=== PATIENT | female | born 1990 | race Caucasian/White ===

== ENCOUNTER 2017-07-04 17:54 | Outpatient (CLI) | payer BC ==
[~2017-07-04] VITALS: Ht 170.2 cm; Wt 65.9 kg
[2017-07-04 18:25] VITALS: BP 111/72
[2017-07-04] MEDS ORDERED: PREN1TAB10 PO (18:39)
== END 2017-07-04 19:04 | disposition home or self-care (01) ==
LOC: LDOP 17:54
PROVIDERS: ATTEND Obstetrics & Gynecology Gynecology
DX: O26.893 Other specified pregnancy related conditions, third trimester (principal); R10.9 Unspecified abdominal pain; Z3A.32 32 weeks gestation of pregnancy
CPT/HCPCS: 59025; 99201; G0463

== ENCOUNTER 2017-08-15 08:35 | Inpatient (IN) | payer BC ==
[~2017-08-15] VITALS: Ht 170.2 cm; Wt 71.0 kg
[~2017-08-15 08:35] MED LIST: PREN1TAB10 PO
[2017-08-15] MEDS ORDERED: BUTORPHANOL 1 MG/ML, 1ML IVPush PRN (22:00)
[2017-08-15] MEDS ORDERED: D5%-LACTATED RINGERS 1,000 ML IV SCH (22:00)
[2017-08-15] MEDS ORDERED: FENTANYL PF 100 MCG/2ML IV PRN (22:00)
[2017-08-15] MEDS ORDERED: TERBUTALINE 1 MG/ML, 1ML SQ PRN (22:00)
[2017-08-15] MEDS ORDERED: OXYTOCIN 30U/ 0.9% NaCL 500ML 500 ML IV PRN (22:00)
[2017-08-15] MEDS ORDERED: ONDANSETRON 2MG/ML, 2ML IVPush PRN (22:00)
[2017-08-15] MEDS ORDERED: OXYTOCIN 30U/ 0.9% NaCL 500ML 500 ML IV ONE (22:00)
[2017-08-15] MEDS ORDERED: TERBUTALINE 1 MG/ML, 1ML IVPush PRN (22:00)
[2017-08-15] MEDS ORDERED: LIDOCAINE 1%, 20ML ONE ×2 (22:10→22:16)
[2017-08-15] MEDS ORDERED: NEWBORN KIT ONE (22:10)
[2017-08-15] MEDS ORDERED: MISOPROSTOL 25 MCG TABLET ONE (22:10)
[2017-08-15] MEDS ORDERED: MISOPROSTOL 200 MCG TABLET ONE ×2 (22:11→22:16)
[2017-08-15] MEDS: LACTATED RINGERS 1,000 ML IV SCH (22:13)
[2017-08-15] MEDS ORDERED: OXYTOCIN 30U/ 0.9% NaCL 500ML 500 ML ONE (22:17)
[2017-08-15 22:33] LABS: BASOPHILS # (AUTO) 0.06 x10^3/uL (0-0.1); BASOPHILS % (AUTO) 0 % (0-1); EOSINOPHILS # (AUTO) 0.11 x10^3/uL (0-0.4); EOSINOPHILS % (AUTO) 1 % (1-7); LYMPHOCYTES % (AUTO) 15 % (22-44); MD NO; MEAN CORPUSCULAR HEMOGLOBIN 28.2 pg (27.0-34.8); MEAN CORPUSCULAR HGB CONC 33.9 g/dL (32.4-35.8); MEAN CORPUSCULAR VOLUME 83.3 fL (80-100); MEAN PLATELET VOLUME 7.8 fL (7.4-10.4); MONOCYTES # (AUTO) 0.73 x10^3/uL (0.2-0.8); MONOCYTES % (AUTO) 5 % (2-9); NEUTROPHILS # (AUTO) 12.32 x10^3/uL (1.8-6.8); NEUTROPHILS % (AUTO) 79 % (42-75); PLATELET COUNT 263 x10^3/uL (130-400); RED BLOOD COUNT 4.12 x10^6/uL (3.82-5.3); RED CELL DISTRIBUTION WIDTH 12.5 % (9.6-15.2)
[2017-08-16] MEDS: LACTATED RINGERS 1,000 ML IV SCH ×4 (04:30→20:14)
[2017-08-16] MEDS ORDERED: FENTANYL PF 100 MCG/2ML ONE ×2 (08:06→10:39)
[2017-08-16] MEDS: FENTANYL PF 100 MCG/2ML IVPush PRN ×2 (08:08→10:41)
[2017-08-16] MEDS ORDERED: FENTANYL/BUPIV./NS/PF 250 ML EPIDCONT ONE (12:55)
[2017-08-16] MEDS: OXYTOCIN 30U/ 0.9% NaCL 500ML 500 ML IV SCH (14:23)
[2017-08-16] MEDS ORDERED: OXYcodone/APAP 5/325MG TABLET PO PRN (14:30)
[2017-08-16] MEDS ORDERED: CALCIUM CARBONATE 500 MG TAB.CHEW PO PRN (14:30)
[2017-08-16] MEDS ORDERED: DOCUSATE 100 MG CAPSULE PO PRN (14:30)
[2017-08-16] MEDS ORDERED: MEASLES,MUMPS&RUBELLA VACC/PF 0.5 ML SQ PRN (14:30)
[2017-08-16] MEDS ORDERED: ONDANSETRON 2MG/ML, 2ML IV PRN (14:30)
[2017-08-16] MEDS ORDERED: OXYcodone IR 5MG TABLET PO PRN (14:30)
[2017-08-16] MEDS ORDERED: RHOGAM FROM BLOOD BANK 1 NOTE EA IM/IV ONE (14:30)
[2017-08-16] MEDS ORDERED: MISOPROSTOL 200 MCG TABLET PR PRN (14:30)
[2017-08-16] MEDS ORDERED: MAGNESIUM HYDROXIDE 8%, 30ML UDC PO PRN (14:30)
[2017-08-16] MEDS ORDERED: DIPH,PERTUSS(ACELL),TET VAC/PF NC IM-VACC PRN (14:30)
[2017-08-16] MEDS ORDERED: IBUPROFEN 600 MG TABLET ONE (15:05)
[2017-08-16] MEDS ORDERED: OXYTOCIN 30U/ 0.9% NaCL 500ML 500 ML ONE (15:05)
[2017-08-16] MEDS: IBUPROFEN 600 MG TABLET PO PRN (15:07)
[2017-08-16 17:40] VITALS: BP 110/71
[2017-08-16 20:00] VITALS: BP_SYST 109; BP_SYST 146; BP_DIAS 68; BP_DIAS 93
[2017-08-16] MEDS ORDERED: FENTANYL/BUPIV./NS/PF 250 ML EPIDCONT SCH (20:14)
[2017-08-16] MEDS ORDERED: NALOXONE 0.4 MG/ML, 1ML IVPush PRN (20:30)
[2017-08-16] MEDS ORDERED: ONDANSETRON 2MG/ML, 2ML IVPush PRN (20:30)
[2017-08-16] MEDS ORDERED: EPHEDRINE 50 MG/ML, 1ML IVPush PRN (20:30)
[2017-08-16] MEDS ORDERED: LACTATED RINGERS 1,000 ML IVBOLUS PRN (20:30)
[2017-08-16] MEDS ORDERED: DIPHENHYDRAMINE 50 MG/ML, 1ML IVPush PRN (20:30)
[2017-08-16 21:59] LABS: MEAN CORPUSCULAR HEMOGLOBIN 28.4 pg (27.0-34.8); MEAN CORPUSCULAR HGB CONC 33.9 g/dL (32.4-35.8); MEAN CORPUSCULAR VOLUME 83.8 fL (80-100); MEAN PLATELET VOLUME 7.7 fL (7.4-10.4); PLATELET COUNT 256 x10^3/uL (130-400); RED BLOOD COUNT 4.02 x10^6/uL (3.82-5.3); RED CELL DISTRIBUTION WIDTH 12.7 % (9.6-15.2)
[2017-08-16 22:28] LABS: BASOPHILS # (AUTO) 0.08 x10^3/uL (0-0.1); BASOPHILS % (AUTO) 0 % (0-1); EOSINOPHILS # (AUTO) 0.02 x10^3/uL (0-0.4); EOSINOPHILS % (AUTO) 0 % (1-7); LYMPHOCYTES # (AUTO) 2.17 x10^3/uL (1-3.4); LYMPHOCYTES % (AUTO) 12 % (22-44); MD SCAN; MONOCYTES # (AUTO) 0.97 x10^3/uL (0.2-0.8); MONOCYTES % (AUTO) 5 % (2-9); NEUTROPHILS # (AUTO) 15.44 x10^3/uL (1.8-6.8); NEUTROPHILS % (AUTO) 83 % (42-75)
[2017-08-17 00:15] VITALS: BP 98/61
[2017-08-17] MEDS: OXYTOCIN 30U/ 0.9% NaCL 500ML 500 ML IV SCH ×2 (00:23→01:23)
[2017-08-17] MEDS ORDERED: MEASLES,MUMPS&RUBELLA VACC/PF 0.5 ML SQ-VACC ONE (00:30)
[2017-08-17] MEDS: LACTATED RINGERS 1,000 ML IV SCH (01:24)
[2017-08-17 05:00] VITALS: BP 91/55
[2017-08-17 07:20] VITALS: BP 98/65
[2017-08-17] MEDS: IBUPROFEN 600 MG TABLET PO PRN (08:09)
[2017-08-17] MEDS ORDERED: PRENATAL VIT/IRON/FA 1 EACH TABLET PO SCH (09:00)
[2017-08-17 12:30] VITALS: BP 103/63
[2017-08-17] MEDS ORDERED: IBUP-1222 PO (13:31)
== END 2017-08-17 14:24 | disposition home or self-care (01) | DRG 775 ==
LOC: LDIP 21:54 → 2NW 08-16 17:00
PROVIDERS: ADMIT Obstetrics & Gynecology Gynecology; ATTEND Obstetrics & Gynecology Gynecology
PROC: 10E0XZZ Delivery of Products of Conception, External Approach (ICD-10-PCS; principal; 2017-08-16)
PROC: 3E033VJ Introduction of Other Hormone into Peripheral Vein, Percutaneous Approach (ICD-10-PCS; 2017-08-16)
PROC: 3E0R3BZ Introduction of Anesthetic Agent into Spinal Canal, Percutaneous Approach (ICD-10-PCS; 2017-08-16)
PROC: 00HU33Z Insertion of Infusion Device into Spinal Canal, Percutaneous Approach (ICD-10-PCS; 2017-08-16)
DX: O36.5930 Maternal care for other known or suspected poor fetal growth, third trimester, not applicable or unspecified (principal); Z37.0 Single live birth; Z3A.38 38 weeks gestation of pregnancy
CPT/HCPCS: 36415; 82803; 85025; 86850; 86900; J3010; J2590; J7120